=== PATIENT | female | born 1970 | race Caucasian/White ===

== ENCOUNTER 2021-02-09 14:57 | Inpatient (IN) | payer OTHER ==
[2021-02-09 16:37] VITALS: BMI 34.7
[2021-02-09] MEDS ORDERED: MAGNESIUM CITRATE 300 ML BOTTLE PO PRN (17:12)
[2021-02-09] MEDS ORDERED: MAGNESIUM HYDROX 2400MG/30ML ORAL SUSPENSION 30 ML CUP PO PRN (17:12)
[2021-02-09] MEDS ORDERED: ONDANSETRON *ODT* 4 MG TABLET SL PRN (17:12)
[2021-02-09] MEDS ORDERED: MENTHOL/PHENOL 1 EACH UD MM PRN (17:12)
[2021-02-09] MEDS ORDERED: BISMUTH SUBSALICYLATE 524 MG/30 ML UD PO PRN (17:12)
[2021-02-09] MEDS ORDERED: ACETAMINOPHEN 325 MG TABLET (FP) PO PRN ×2 (17:12)
[2021-02-09] MEDS ORDERED: chlordiazePOXIDE HCL 25 MG CAPSULE PO PRN (17:19)
[2021-02-09] MEDS ORDERED: COLLOIDAL OATMEAL 1 BAR EACH TP PRN (17:59)
[2021-02-09] MEDS: chlordiazePOXIDE HCL 25 MG CAPSULE PO SCH ×2 (18:57→22:10)
[2021-02-09] MEDS: PANTOPRAZOLE 40 MG TABLET PO SCH (18:58)
[2021-02-09] MEDS: METHOCARBAMOL 500 MG TABLET PO PRN (19:03)
[2021-02-09] MEDS: MELATONIN 5 MG TABLETS PO SCH (22:11)
[2021-02-09] MEDS: THIAMINE HCL 100 MG TABLET (FP) PO SCH (22:11)
[2021-02-09] MEDS: MAG HYDROX/AL HYDROX/SIMETH 30 ML UNIT-DOSE CUP PO PRN (23:52)
[2021-02-10] MEDS: hydrOXYzine PAMOATE 25 MG CAPSULE (FP) PO PRN ×2 (00:19→22:09)
[2021-02-10] MEDS: chlordiazePOXIDE HCL 25 MG CAPSULE PO SCH ×4 (06:05→22:04)
[2021-02-10] MEDS: PRENATAL VITAMINS W/ FOLIC ACID TABLET (FP) PO SCH (10:30)
[2021-02-10] MEDS: ASPIRIN COATED 81 MG TABLET.EC PO SCH (10:31)
[2021-02-10] MEDS: LOSARTAN POTASSIUM 25 MG TABLET PO SCH (10:31)
[2021-02-10] MEDS: PANTOPRAZOLE 40 MG TABLET PO SCH (10:33)
[2021-02-10 11:27] LABS: HEMATOCRIT 35.8 % (32.4-45.2); HEMOGLOBIN 12.2 GM/dL (10.7-15.3); MCH 30.9 pg (25.7-33.7); MEAN CELL VOLUME 90.9 fl (80-96); MEAN PLT VOLUME 9.4 fl (7.5-11.1); PLATELET COUNT 250 K/MM3 (134-434); RBC 3.94 M/mm3 (3.60-5.2); RDW 14.2 % (11.6-15.6); WHITE BLOOD COUNT 9.9 K/mm3 (4.0-10.0)
[2021-02-10 11:46] LABS: ALBUMIN 3.7 g/dl (3.4-5.0); CALCIUM 10.1 mg/dL (8.5-10.1)
[2021-02-10 11:47] LABS: BLOOD UREA NITROGEN 8.1 mg/dL (7-18)
[2021-02-10 11:50] LABS: CREATININE 0.7 mg/dL (0.55-1.3)
[2021-02-10 11:51] LABS: BILIRUBIN,TOTAL 1.6 mg/dL (0.2-1); TOT PROT 8.2 g/dl (6.4-8.2)
[2021-02-10] MEDS: busPIRone HCL 10 MG TABLET (FP) PO SCH ×2 (13:15→22:04)
[2021-02-10] MEDS ORDERED: METHOCARBAMOL 750 MG TAB PO ONE (14:00)
[2021-02-10] MEDS ORDERED: POTASSIUM CHLORIDE ORAL LIQUID 20 MEQ/15 ML PO ONE ×2 (14:30→18:30)
[2021-02-10] MEDS: MAG HYDROX/AL HYDROX/SIMETH 30 ML UNIT-DOSE CUP PO PRN (17:39)
[2021-02-10] MEDS: METHOCARBAMOL 500 MG TABLET PO PRN (17:47)
[2021-02-10] MEDS: THIAMINE HCL 100 MG TABLET (FP) PO SCH (22:04)
[2021-02-10] MEDS: QUEtiapine FUMARATE 100 MG TABLET (FP) PO SCH (22:05)
[2021-02-10] MEDS: MELATONIN 5 MG TABLETS PO SCH (22:05)
[2021-02-11] MEDS: chlordiazePOXIDE HCL 25 MG CAPSULE PO SCH ×4 (06:14→22:17)
[2021-02-11] MEDS: busPIRone HCL 10 MG TABLET (FP) PO SCH ×2 (10:20→22:17)
[2021-02-11] MEDS: ASPIRIN COATED 81 MG TABLET.EC PO SCH (10:20)
[2021-02-11] MEDS: LOSARTAN POTASSIUM 25 MG TABLET PO SCH (10:20)
[2021-02-11] MEDS: PANTOPRAZOLE 40 MG TABLET PO SCH (10:20)
[2021-02-11] MEDS: PRENATAL VITAMINS W/ FOLIC ACID TABLET (FP) PO SCH (10:20)
[2021-02-11] MEDS: hydrOXYzine PAMOATE 25 MG CAPSULE (FP) PO PRN ×2 (10:22→18:21)
[2021-02-11] MEDS ORDERED: POTASSIUM CHLORIDE ORAL LIQUID 20 MEQ/15 ML PO ONE (14:20)
[2021-02-11 18:34] LABS: HIV INTERPRETATION NEGATIVE (NEGATIVE)
[2021-02-11] MEDS: THIAMINE HCL 100 MG TABLET (FP) PO SCH (22:17)
[2021-02-11] MEDS: QUEtiapine FUMARATE 100 MG TABLET (FP) PO SCH (22:18)
[2021-02-11] MEDS: MELATONIN 5 MG TABLETS PO SCH (22:20)
[2021-02-11] MEDS: POTASSIUM CHLORIDE ORAL LIQUID 20 MEQ/15 ML PO SCH (22:20)
[2021-02-12] MEDS ORDERED: chlordiazePOXIDE HCL 10 MG CAPSULE PO PRN
[2021-02-12] MEDS: chlordiazePOXIDE HCL 10 MG CAPSULE PO SCH ×4 (06:40→22:15)
[2021-02-12] MEDS: hydrOXYzine PAMOATE 25 MG CAPSULE (FP) PO PRN ×2 (06:43→13:21)
[2021-02-12 10:08] LABS: SARS-CoV-2 NAA Not Detected (Not Detected)
[2021-02-12] MEDS: busPIRone HCL 10 MG TABLET (FP) PO SCH ×2 (10:16→22:15)
[2021-02-12] MEDS: ASPIRIN COATED 81 MG TABLET.EC PO SCH (10:16)
[2021-02-12] MEDS: LOSARTAN POTASSIUM 25 MG TABLET PO SCH (10:16)
[2021-02-12] MEDS: PANTOPRAZOLE 40 MG TABLET PO SCH (10:19)
[2021-02-12] MEDS: PRENATAL VITAMINS W/ FOLIC ACID TABLET (FP) PO SCH (10:19)
[2021-02-12] MEDS: POTASSIUM CHLORIDE ORAL LIQUID 20 MEQ/15 ML PO SCH ×2 (10:19→22:15)
[2021-02-12] MEDS: MELATONIN 5 MG TABLETS PO SCH (22:15)
[2021-02-12] MEDS: THIAMINE HCL 100 MG TABLET (FP) PO SCH (22:16)
[2021-02-12] MEDS: QUEtiapine FUMARATE 100 MG TABLET (FP) PO SCH (22:16)
[2021-02-12] MEDS: METHOCARBAMOL 500 MG TABLET PO PRN (22:33)
[2021-02-13] MEDS: chlordiazePOXIDE HCL 10 MG CAPSULE PO SCH ×2 (06:47→16:43)
[2021-02-13] MEDS: PRENATAL VITAMINS W/ FOLIC ACID TABLET (FP) PO SCH (10:05)
[2021-02-13] MEDS: hydrOXYzine PAMOATE 25 MG CAPSULE (FP) PO PRN ×3 (10:05→22:09)
[2021-02-13] MEDS: LOSARTAN POTASSIUM 25 MG TABLET PO SCH (10:05)
[2021-02-13] MEDS: PANTOPRAZOLE 40 MG TABLET PO SCH (10:05)
[2021-02-13] MEDS: ASPIRIN COATED 81 MG TABLET.EC PO SCH (10:05)
[2021-02-13] MEDS: busPIRone HCL 10 MG TABLET (FP) PO SCH ×2 (10:05→22:09)
[2021-02-13] MEDS: METHOCARBAMOL 500 MG TABLET PO PRN ×3 (10:07→22:09)
[2021-02-13] MEDS: MELATONIN 5 MG TABLETS PO SCH (22:09)
[2021-02-13] MEDS: THIAMINE HCL 100 MG TABLET (FP) PO SCH (22:11)
[2021-02-13] MEDS: QUEtiapine FUMARATE 100 MG TABLET (FP) PO SCH (22:11)
[2021-02-14 00:25] VITALS: BP 129/68; PULSE 91; TEMP 97.7
[2021-02-14] MEDS ORDERED: chlordiazePOXIDE HCL 10 MG CAPSULE PO ONE (05:00)
[2021-02-14] MEDS: METHOCARBAMOL 500 MG TABLET PO PRN (07:55)
== END 2021-02-14 09:39 | disposition home or self-care (01) | DRG 775 ==
LOC: YASAS 14:57 → Y6N 18:07
PROVIDERS: ADMIT Allergy & Immunology; ATTEND Allergy & Immunology
PROC: HZ2ZZZZ Detoxification Services for Substance Abuse Treatment (ICD-10-PCS; principal; 2021-02-09)
DX: F10.230 Alcohol dependence with withdrawal, uncomplicated (principal); F17.210 Nicotine dependence, cigarettes, uncomplicated; F10.24 Alcohol dependence with alcohol-induced mood disorder; F10.282 Alcohol dependence with alcohol-induced sleep disorder; D64.9 Anemia, unspecified; E87.6 Hypokalemia; E80.6 Other disorders of bilirubin metabolism; E11.9 Type 2 diabetes mellitus without complications; Z79.4 Long term (current) use of insulin; G40.909 Epilepsy, unspecified, not intractable, without status epilepticus; I10 Essential (primary) hypertension; K21.9 Gastro-esophageal reflux disease without esophagitis; R74.01 Elevation of levels of liver transaminase levels; Z62.810 Personal history of physical and sexual abuse in childhood; Z91.410 Personal history of adult physical and sexual abuse
CPT/HCPCS: 36415; 80053; 81025; 82962; 85027; 86780; 87389; 93005; 93010; C9803; Q0162; U0003; U0005